=== PATIENT | male | born 1980 | race Caucasian/White ===

== ENCOUNTER → 2017-05-19 | Outpatient (CLI) | payer OTHER ==
[~2017-05-19] MED LIST: ACET-1748 PO; CEP500 PO; CYC10 PO; IBU200 PO; INDO-1 PO; LOR7.5/325 PO; LOSA50TA73 PO; NAP250 PO
[2017-05-19 09:25] LABS: PLATELET COUNT, AUTOMATED 171 K/uL (150-450)
== END ==
LOC: LAB 08:52
PROVIDERS: ATTEND Nurse Practitioner Family
DX: N18.9 Chronic kidney disease, unspecified (principal); Z79.899 Other long term (current) drug therapy; Z94.0 Kidney transplant status; R82.99 Other abnormal findings in urine; E87.8 Other disorders of electrolyte and fluid balance, not elsewhere classified; E83.30 Disorder of phosphorus metabolism, unspecified; E83.40 Disorders of magnesium metabolism, unspecified; R74.8 Abnormal levels of other serum enzymes; Z94.83 Pancreas transplant status
CPT/HCPCS: 36415; 80197; 81001; 82040; 82247; 82310; 82374; 82435; 82565; 82947; 83735; 84075; 84100; 84132; 84155; 84295; 84450; 84460; 84520; 85025

== ENCOUNTER → 2017-06-04 | Outpatient (CLI) | payer OTHER | LOC: LAB 08:58 | PROVIDERS: ATTEND Nurse Practitioner Family | DX: R82.99 Other abnormal findings in urine (principal); R19.7 Diarrhea, unspecified; N18.9 Chronic kidney disease, unspecified; Z94.0 Kidney transplant status | CPT/HCPCS: 82570; 84156; 87799; 99001 ==

== ENCOUNTER → 2017-06-04 | Outpatient (CLI) | payer OTHER ==
[2017-06-04 09:27] LABS: PLATELET COUNT, AUTOMATED 156 K/uL (150-450)
== END ==
LOC: LAB 08:55
PROVIDERS: ATTEND Nurse Practitioner Family
DX: N18.9 Chronic kidney disease, unspecified (principal); Z79.899 Other long term (current) drug therapy; Z94.0 Kidney transplant status; R82.99 Other abnormal findings in urine; E87.8 Other disorders of electrolyte and fluid balance, not elsewhere classified; E83.30 Disorder of phosphorus metabolism, unspecified; E83.40 Disorders of magnesium metabolism, unspecified; R74.8 Abnormal levels of other serum enzymes
CPT/HCPCS: 36415; 80197; 81001; 82040; 82247; 82310; 82374; 82435; 82565; 82947; 83735; 84075; 84100; 84132; 84155; 84295; 84450; 84460; 84520; 85025; 87497

== ENCOUNTER → 2017-06-17 | Outpatient (CLI) | payer OTHER | LOC: LAB 17:56 | PROVIDERS: ATTEND Nurse Practitioner Family | DX: N18.9 Chronic kidney disease, unspecified (principal); Z79.899 Other long term (current) drug therapy; Z94.0 Kidney transplant status; R82.99 Other abnormal findings in urine; E87.8 Other disorders of electrolyte and fluid balance, not elsewhere classified; E83.30 Disorder of phosphorus metabolism, unspecified; E83.40 Disorders of magnesium metabolism, unspecified | CPT/HCPCS: 36415; 82040; 82247; 82310; 82374; 82435; 82565; 82947; 84075; 84132; 84155; 84295; 84450; 84460; 84520 ==

== ENCOUNTER → 2017-06-19 | Outpatient (CLI) | payer OTHER | LOC: LAB 16:14 | PROVIDERS: ATTEND Nurse Practitioner Family | DX: R19.7 Diarrhea, unspecified (principal) | CPT/HCPCS: 82570; 84156 ==

== ENCOUNTER → 2017-06-24 | Outpatient (CLI) | payer OTHER | LOC: LAB 17:03 | DX: Z51.81 Encounter for therapeutic drug level monitoring (principal); N18.9 Chronic kidney disease, unspecified; D50.0 Iron deficiency anemia secondary to blood loss (chronic) ==

== ENCOUNTER → 2017-06-24 | Outpatient (CLI) | payer OTHER ==
[2017-06-24 17:51] LABS: PLATELET COUNT, AUTOMATED 173 K/uL (150-450)
== END ==
LOC: LAB 17:10
PROVIDERS: ATTEND Nurse Practitioner Family
DX: Z79.899 Other long term (current) drug therapy (principal); N18.4 Chronic kidney disease, stage 4 (severe); Z94.0 Kidney transplant status; R82.99 Other abnormal findings in urine; E87.8 Other disorders of electrolyte and fluid balance, not elsewhere classified; E83.30 Disorder of phosphorus metabolism, unspecified
CPT/HCPCS: 36415; 80197; 81001; 82040; 82247; 82274; 82310; 82374; 82435; 82565; 82947; 83630; 83735; 84075; 84100; 84132; 84155; 84295; 84450; 84460; 84520; 85025; 87045; 87177; 87324; 87328; 87425; 87449

== ENCOUNTER → 2017-07-11 | Outpatient (CLI) | payer OTHER ==
[2017-07-11 15:12] LABS: PLATELET COUNT, AUTOMATED 163 K/uL (150-450)
== END ==
LOC: LAB 14:42
PROVIDERS: ATTEND Nurse Practitioner Family
DX: N18.9 Chronic kidney disease, unspecified (principal); Z79.899 Other long term (current) drug therapy; Z94.0 Kidney transplant status; R82.99 Other abnormal findings in urine; E87.8 Other disorders of electrolyte and fluid balance, not elsewhere classified; E83.30 Disorder of phosphorus metabolism, unspecified; E83.40 Disorders of magnesium metabolism, unspecified
CPT/HCPCS: 36415; 81001; 82040; 82247; 82310; 82374; 82435; 82565; 82947; 84075; 84132; 84155; 84295; 84450; 84460; 84520; 85025

== ENCOUNTER → 2017-07-14 | Outpatient (CLI) | payer OTHER ==
[2017-07-14 09:32] LABS: PLATELET COUNT, AUTOMATED 159 K/uL (150-450)
== END ==
LOC: LAB 09:08
PROVIDERS: ATTEND Nurse Practitioner Family
DX: N18.9 Chronic kidney disease, unspecified (principal); Z79.899 Other long term (current) drug therapy; Z94.0 Kidney transplant status; R82.99 Other abnormal findings in urine; E87.8 Other disorders of electrolyte and fluid balance, not elsewhere classified; E83.30 Disorder of phosphorus metabolism, unspecified; E83.40 Disorders of magnesium metabolism, unspecified
CPT/HCPCS: 36415; 80197; 82040; 82247; 82310; 82374; 82435; 82565; 82947; 84075; 84132; 84155; 84295; 84450; 84460; 84520; 85025; 87497

== ENCOUNTER → 2017-07-30 | Outpatient (CLI) | payer OTHER ==
[2017-07-30 20:06] LABS: PLATELET COUNT, AUTOMATED 180 K/uL (150-450)
== END ==
LOC: LAB 19:45
PROVIDERS: ATTEND Nurse Practitioner Family
DX: N18.9 Chronic kidney disease, unspecified (principal); Z79.899 Other long term (current) drug therapy; Z94.0 Kidney transplant status; R82.99 Other abnormal findings in urine; E87.8 Other disorders of electrolyte and fluid balance, not elsewhere classified; E83.30 Disorder of phosphorus metabolism, unspecified
CPT/HCPCS: 36415; 81001; 82040; 82247; 82310; 82374; 82435; 82565; 82947; 84075; 84132; 84155; 84295; 84450; 84460; 84520; 85025

== ENCOUNTER → 2017-08-11 | Outpatient (CLI) | payer OTHER ==
[2017-08-11 09:42] LABS: PLATELET COUNT, AUTOMATED 170 K/uL (150-450)
== END ==
LOC: LAB 09:05
PROVIDERS: ATTEND Nurse Practitioner Family
DX: N18.9 Chronic kidney disease, unspecified (principal); Z79.899 Other long term (current) drug therapy; Z94.0 Kidney transplant status; R82.99 Other abnormal findings in urine; E87.8 Other disorders of electrolyte and fluid balance, not elsewhere classified; E83.30 Disorder of phosphorus metabolism, unspecified; E83.40 Disorders of magnesium metabolism, unspecified
CPT/HCPCS: 36415; 80197; 82040; 82247; 82310; 82374; 82435; 82565; 82947; 84075; 84132; 84155; 84295; 84450; 84460; 84520; 85025

== ENCOUNTER → 2017-09-17 | Outpatient (CLI) | payer OTHER | LOC: LAB 08:34 | PROVIDERS: ATTEND Nurse Practitioner Family | DX: E87.8 Other disorders of electrolyte and fluid balance, not elsewhere classified (principal); Z94.0 Kidney transplant status; N18.9 Chronic kidney disease, unspecified; Z79.899 Other long term (current) drug therapy; E83.30 Disorder of phosphorus metabolism, unspecified; E83.40 Disorders of magnesium metabolism, unspecified | CPT/HCPCS: 36415; 80197; 81001; 82040; 82247; 82310; 82374; 82435; 82565; 82947; 84075; 84132; 84155; 84295; 84450; 84460; 84520; 87497 ==

== ENCOUNTER → 2017-09-30 | Outpatient (CLI) | payer OTHER ==
[2017-09-30 09:58] LABS: PLATELET COUNT, AUTOMATED 177 K/uL (150-450)
== END ==
LOC: LAB 09:08
PROVIDERS: ATTEND Nurse Practitioner Family
DX: E87.8 Other disorders of electrolyte and fluid balance, not elsewhere classified (principal); E83.30 Disorder of phosphorus metabolism, unspecified; Z94.0 Kidney transplant status; Z79.899 Other long term (current) drug therapy; N18.9 Chronic kidney disease, unspecified
CPT/HCPCS: 81001; 82040; 82247; 82310; 82374; 82435; 82565; 82947; 83735; 84075; 84100; 84132; 84155; 84295; 84450; 84460; 84520; 85025

== ENCOUNTER → 2017-09-30 | Outpatient (CLI) | payer OTHER | LOC: LAB 09:11 | DX: R82.99 Other abnormal findings in urine (principal); E11.9 Type 2 diabetes mellitus without complications; E78.00 Pure hypercholesterolemia, unspecified; N18.9 Chronic kidney disease, unspecified; Z94.0 Kidney transplant status; E55.9 Vitamin D deficiency, unspecified | CPT/HCPCS: 36415; 82465; 83718; 84478 ==

== ENCOUNTER → 2017-10-04 | Outpatient (CLI) | payer OTHER ==
--- NOTE | 2017-10-04 11:45 | RADIOLOGY IMAGING REPORT ---
FACILITY: [facility] [place] PATIENT NAME: Tahir Menjivar : 1980 MR: [id number] V: [id number] EXAM DATE: ORDERING PHYSICIAN: CAROLYN DENNIS TECHNOLOGIST: Location: [facility] - [place], [place] Patient: Tahir Menjivar : 1980 Visit/Account:[id number] Date of Sevice: 10/04/2017 EXAMINATION: Abdominal ultrasound complete HISTORY: Elevated bilirubin history of gallbladder polyps, right upper quadrant pain COMPARISON: CT abdomen pelvis August 19, 2011 FINDINGS: Gallbladder: Small nonshadowing nonmobile echogenic foci are seen at the gallbladder neck and along t he anterior wall. Gallbladder wall measures 1.7 mm in thickness. There is a negative Feliciano sign. Liver: Negative. Common duct: Normal measuring 4.9 mm. Pancreas: Negative. Spleen: Normal in size and echogenicity measuring 10.1 cm in length. Kidneys: The tetlin kidneys are atrophic and echogenic, the right measures 4.9 cm in length, and the left 5.9 cm. No hydronephrosis. There is a transplanted kidney in the right pelvis measuring 10.1 x 5 x 5.9 cm there is minimal pelvocaliectasis of this kidney Upper abdominal aorta and IVC: Negative. Ascites: None. IMPRESSION: Small gallbladder polyps are noted Small atrophic tetlin kidneys Transplanted right kidney in the right-sided the pelvis with minimal pelvocaliectasis Report Dictated By: Julia Lazcano MD at 10/04/2017 11:36 AM Report E-Signed By: Julia Lazcano MD at 10/04/2017 11:40 AM WSN:[email or web address]
== END ==
LOC: US 03:19
PROVIDERS: ATTEND Family Medicine
DX: K82.4 Cholesterolosis of gallbladder (principal); N26.1 Atrophy of kidney (terminal); Z94.0 Kidney transplant status
CPT/HCPCS: 76700

== ENCOUNTER → 2017-10-05 | Outpatient (CLI) | payer OTHER ==
[2017-10-05 09:20] LABS: PLATELET COUNT, AUTOMATED 170 K/uL (150-450)
== END ==
LOC: LAB 08:56
PROVIDERS: ATTEND Nurse Practitioner Family
DX: Z94.0 Kidney transplant status (principal); Z79.899 Other long term (current) drug therapy; N18.9 Chronic kidney disease, unspecified; E87.8 Other disorders of electrolyte and fluid balance, not elsewhere classified; E83.30 Disorder of phosphorus metabolism, unspecified
CPT/HCPCS: 36415; 80197; 81001; 82040; 82247; 82310; 82374; 82435; 82565; 82947; 83735; 84075; 84100; 84132; 84155; 84295; 84450; 84460; 84520; 85025; 87497

== ENCOUNTER 2017-10-24 19:16 | Emergency (ER) | payer OTHER ==
--- NOTE | 2017-10-24 19:27 | ER Report ---
History and Physical Time Seen By MD: 19:27 Hx. of Stated Complaint: Pt reporting abdominal pain for a week. Upper left quadrant to be specific. Pt reports no nvd or fevers. Pt states his "appenix is fine" meaning he still has it but reports no lower right quadrant pain. Pt is a kidney transplant patient and states antiregection medication has been causing "gullbladder polyps". HPI/ROS CHIEF COMPLAINT: Abdominal pain HISTORY OF PRESENT ILLNESS: Patient is a 37-year-old male who presents to the emergency department for evaluation of epigastric abdominal pain that began today. He currently states that the pain is 7 out of 10 in intensity and without radiation. He states no nausea or vomiting. He denies any fevers or chills. Patient has a history for acute kidney failure and received a transplant at [place] in 2017. Prior to that he had been admitted [place] [facility] [place] and was found to have decreased renal function and pyelonephritis for which she was treated for at that time. He states that he takes tacrolimus, mycophenolate, and prednisone as antirejection medications. He denies ever having problems with rejection. Patient's kidney is abdominal inserted on the right lower quadrant. REVIEW OF SYSTEMS: Constitutional: No fever, no chills. Eyes: No discharge. ENT: No sore throat. Cardiovascular: No chest pain, no palpitations. Respiratory: No cough, no shortness of breath. Gastrointestinal: Epigastric abdominal pain, no nausea, no vomiting, no diarrhea Genitourinary: No hematuria. No dysuria, no oliguria. Musculoskeletal: No back pain. Skin: No rashes. Neurological: No headache. Allergies: Coded Allergies: No Known Drug Allergies (Verified , 05/14/11) Home Meds Reported Medications Pantoprazole Sodium (PANTOPRAZOLE SODIUM) 40 Mg Tablet.dr, 40 MG PO QDAY Y for prn, TAB.SR 10/24/17 Calcium Carbonate (Calcium) 500 Mg Tab.chew, 600 MG BID 10/24/17 [magnesium] No Conflict Check, 400 BID 10/24/17 Prednisone (Prednisone) 5 Mg Tablet, 5 MG QDAY 10/24/17 Mycophenolate Sodium (Mycophenolic Acid) 360 Mg Tablet.dr, 720 BID 10/24/17 Tacrolimus (TACROLIMUS) 1 Mg Capsule, 2 MG PO BID, CAPSULE 10/24/17 Acetaminophen (Acetaminophen) 325 Mg Tablet, 650 MG PO Q6H Y DO NOT TAKE IF USING LORTAB. 08/22/11 Discontinued Reported Medications Cephalexin Monohydrate (Keflex) 500 Mg Cap, 500 MG PO QID, #44 Take 1 tablet 4 times per day for 11 days. 08/22/11 Losartan Potassium (Losartan Potassium) 50 Mg Tablet, 50 MG PO QDAY 08/19/11 Acetaminophen/Hydrocodone (Lortab 7.5/325 Mg) 7.5 Mg/325 Mg Tab, 1 TAB PO Q6H Y , #15 0 Refills DO NOT TAKE IF USING LORTAB. 05/14/11 Past Medical/Surgical History Past medical history for renal insufficiency and admission in 2012 for pyelonephritis. History of kidney transplant currently on antirejection medication. 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 Head: Normocephalic and atraumatic. Eyes: Conjunctival clear, Pupils are equal and reactive to light. Sclera are clear and anicteric. Ears:External canals are clear. Tympanic membranes are clear with normal landmarks and light reflex. Nares: No rhinorrhea or bleeding. Turbinates are pink and moist. Oropharyngeal: Mucous membranes are moist. Neck: Supple, no adenopathy. Cardiovascular: Heart is regular rate and rhythm without audible murmurs, rubs or gallops. Pulmonary: Lungs are clear to auscultation bilaterally. There are no wheezes, rales, or rhonchi. Chest rise is symmetrical Abdomen: Soft, mild epigastric tenderness, no guarding or peritoneal signs. Patient has surgical scar to the right lower quadrant appears chronic and well- healed. Extremities: No gross deformities, No peripheral cyanosis. Able to move all 4 extremities. Neuro: Alert and oriented X3, Skin: No rashes, skin is warm dry and well perfused. Medical Decision Making Data Points Result Diagram: 10/24/17194110/24/171941 Laboratory Hematology Test 10/24/17 19:21 10/24/17 19:42 Urine Color Colorless Urine Clarity Clear Urine pH 6.0 pH (4.8-9.5) Urine Specific Spiro 1.002 Urine Protein Negative mg/dL (NEGATIVE) Urine Glucose (UA) Negative mg/dL (NEGATIVE) Urine Ketones Negative mg/dL (NEGATIVE) Urine Blood Negative (NEGATIVE) Urine Nitrite Negative (NEGATIVE) Urine Bilirubin Negative (NEGATIVE) Urine Urobilinogen Negative mg/dL (0.2-1.9) Urine Leukocyte Esterase Negative (NEGATIVE) Urine RBC None /HPF (0-2/HPF) Urine WBC None /HPF (0-5/HPF) Urine Squamous Epithelial Cells None /LPF (</=FEW) Urine Bacteria Negative /HPF (NONE-FEW) Urine Mucus None /HPF (NONE-FEW) Red Blood Count 5.33 M/uL (4.00-5.60) Mean Corpuscular Volume 83.1 fL (80.0-96.0) Mean Corpuscular Hemoglobin 28.2 pg (26.0-33.0) Mean Corpuscular Hemoglobin Concent 33.9 g/dL (32.0-36.0) Red Cell Distribution Width 14.7 % (11.5-14.5) Mean Platelet Volume 8.7 fL (7.2-11.1) Neutrophils (%) (Auto) 63.7 % (39.4-72.5) Lymphocytes (%) (Auto) 28.7 % (17.6-49.6) Monocytes (%) (Auto) 7.0 % (4.1-12.4) Eosinophils (%) (Auto) 0.1 % (0.4-6.7) Basophils (%) (Auto) 0.5 % (0.3-1.4) Nucleated RBC Relative Count (auto) 0.1 /100WBC Neutrophils # (Auto) 5.7 K/uL (2.0-7.4) Lymphocytes # (Auto) 2.6 K/uL (1.3-3.6) Monocytes # (Auto) 0.6 K/uL (0.3-1.0) Eosinophils # (Auto) 0.0 K/uL (0.0-0.5) Basophils # (Auto) 0.0 K/uL (0.0-0.1) Nucleated RBC Absolute Count (auto) 0.01 K/uL Sodium Level 138 mmol/L (137-145) Potassium Level 3.7 mmol/L (3.5-5.0) Chloride Level 103 mmol/L (98-107) Carbon Dioxide Level 23 mmol/L (22-30) Blood Urea Nitrogen 21 mg/dl (9-21) Creatinine 1.30 mg/dl (0.66-1.25) Glomerular Filtration Rate Calc > 60.0 Random Glucose 82 mg/dl (75-110) Calcium Level 9.7 mg/dl (8.4-10.2) Total Bilirubin 1.7 mg/dl (0.2-1.3) Aspartate Amino Transf (AST/SGOT) 17 U/L (0-35) Alanine Aminotransferase (ALT/SGPT) 25 U/L (0-56) Alkaline Phosphatase 56 U/L (0-126) Total Protein 7.2 gm/dl (6.3-8.2) Albumin 4.3 g/dl (3.5-5.0) Lipase 203 U/L (23-300) Chemistry Test 10/24/17 19:21 10/24/17 19:42 Urine Color Colorless Urine Clarity Clear Urine pH 6.0 pH (4.8-9.5) Urine Specific Spiro 1.002 Urine Protein Negative mg/dL (NEGATIVE) Urine Glucose (UA) Negative mg/dL (NEGATIVE) Urine Ketones Negative mg/dL (NEGATIVE) Urine Blood Negative (NEGATIVE) Urine Nitrite Negative (NEGATIVE) Urine Bilirubin Negative (NEGATIVE) Urine Urobilinogen Negative mg/dL (0.2-1.9) Urine Leukocyte Esterase Negative (NEGATIVE) Urine RBC None /HPF (0-2/HPF) Urine WBC None /HPF (0-5/HPF) Urine Squamous Epithelial Cells None /LPF (</=FEW) Urine Bacteria Negative /HPF (NONE-FEW) Urine Mucus None /HPF (NONE-FEW) White Blood Count 9.0 k/uL (4.5-11.0) Red Blood Count 5.33 M/uL (4.00-5.60) Hemoglobin 15.0 g/dL (14.0-18.0) Hematocrit 44.3 % (42.0-52.0) Mean Corpuscular Volume 83.1 fL (80.0-96.0) Mean Corpuscular Hemoglobin 28.2 pg (26.0-33.0) Mean Corpuscular Hemoglobin Concent 33.9 g/dL (32.0-36.0) Red Cell Distribution Width 14.7 % (11.5-14.5) Platelet Count 165 K/uL (150-450) Mean Platelet Volume 8.7 fL (7.2-11.1) Neutrophils (%) (Auto) 63.7 % (39.4-72.5) Lymphocytes (%) (Auto) 28.7 % (17.6-49.6) Monocytes (%) (Auto) 7.0 % (4.1-12.4) Eosinophils (%) (Auto) 0.1 % (0.4-6.7) Basophils (%) (Auto) 0.5 % (0.3-1.4) Nucleated RBC Relative Count (auto) 0.1 /100WBC Neutrophils # (Auto) 5.7 K/uL (2.0-7.4) Lymphocytes # (Auto) 2.6 K/uL (1.3-3.6) Monocytes # (Auto) 0.6 K/uL (0.3-1.0) Eosinophils # (Auto) 0.0 K/uL (0.0-0.5) Basophils # (Auto) 0.0 K/uL (0.0-0.1) Nucleated RBC Absolute Count (auto) 0.01 K/uL Glomerular Filtration Rate Calc > 60.0 Calcium Level 9.7 mg/dl (8.4-10.2) Total Bilirubin 1.7 mg/dl (0.2-1.3) Aspartate Amino Transf (AST/SGOT) 17 U/L (0-35) Alanine Aminotransferase (ALT/SGPT) 25 U/L (0-56) Alkaline Phosphatase 56 U/L (0-126) Total Protein 7.2 gm/dl (6.3-8.2) Albumin 4.3 g/dl (3.5-5.0) Lipase 203 U/L (23-300) Urinalysis Test 10/24/17 19:21 Urine Color Colorless Urine Clarity Clear Urine pH 6.0 pH (4.8-9.5) Urine Specific Spiro 1.002 Urine Protein Negative mg/dL (NEGATIVE) Urine Glucose (UA) Negative mg/dL (NEGATIVE) Urine Ketones Negative mg/dL (NEGATIVE) Urine Blood Negative (NEGATIVE) Urine Nitrite Negative (NEGATIVE) Urine Bilirubin Negative (NEGATIVE) Urine Urobilinogen Negative mg/dL (0.2-1.9) Urine Leukocyte Esterase Negative (NEGATIVE) Urine RBC None /HPF (0-2/HPF) Urine WBC None /HPF (0-5/HPF) Urine Squamous Epithelial Cells None /LPF (</=FEW) Urine Bacteria Negative /HPF (NONE-FEW) Urine Mucus None /HPF (NONE-FEW) ED Course/Re-evaluation Clinical Indication for ER IV: IV Access ED Course 10/24/2017 7:53:39 pm plan at this time will be to obtain CBC CMP and lipase urinalysis. Patient was offered pain medication but states he does not wish any at this time. Disposition pending workup. 10/24/2017 8:30:53 pm patient with normal GFR labs essentially all normal urinalysis is normal as well. Exam remains unchanged. Because patient has minimal symptoms do not feel any imaging studies at this time are warranted. Patient was counseled that if his symptoms seem to worsen or he develops fever at any time or has decreased urinary output should return immediately to the emergency department for reevaluation. Patient had no questions or concerns at time of disposition. Decision to Disposition Date: Oct 24, 2017 Decision to Disposition Time: 20:31 Depart Departure Latest Vital Signs Vital Signs Date Time Temp Pulse Resp B/P (MAP) Pulse Ox O2 Delivery O2 Flow Rate FiO2 10/24/17 20:31 76 96 10/24/17 20:00 135/97 (110) 10/24/17 19:21 98.2 16 Room Air Impression: Primary Impression: Epigastric abdominal pain Condition: Improved Disposition: HOME OR SELF-CARE Departure Forms: ER Transition Record, Medications Reconciliation, Patient Portal Information Patient Instructions: Epigastric Pain (ED) Additional Instructions: Continue all your outpatient medications as directed. If you develop fever at any time or if you have worsening abdominal pain or decreased urine output or blood in the urine you should return to the emergency department immediately. Otherwise follow-up routinely with your primary care provider LYN HOWARD MD Oct 24, 2017 19:27
[2017-10-24] MEDS ORDERED: magnesium (19:34)
[2017-10-24] MEDS ORDERED: PANT40TA65 PO (19:34)
[2017-10-24] MEDS ORDERED: TACR1CAP13 PO (19:34)
[2017-10-24] MEDS ORDERED: CALC-1046 (19:34)
[2017-10-24] MEDS ORDERED: PRED-317 (19:34)
[2017-10-24] MEDS ORDERED: MYCO360T (19:34)
[2017-10-24 19:59] LABS: PLATELET COUNT, AUTOMATED 165 K/uL (150-450)
[2017-10-24 20:00] VITALS: BP 135/97
== END 2017-10-24 20:36 | disposition home or self-care (01) ==
LOC: ER 19:32
DX: R10.13 Epigastric pain (principal); Z94.0 Kidney transplant status
CPT/HCPCS: 81001; 82040; 82247; 82310; 82374; 82435; 82565; 82947; 83690; 84075; 84132; 84155; 84295; 84450; 84460; 84520; 85025; 99282

== ENCOUNTER → 2017-10-28 | Outpatient (CLI) | payer OTHER ==
[~2017-10-28] MED LIST changes: +CALC-1046; +MYCO360T; +PANT40TA65 PO; +PRED-317; +TACR1CAP13 PO; +magnesium
[2017-10-28 09:19] LABS: PLATELET COUNT, AUTOMATED 183 K/uL (150-450)
== END ==
LOC: LAB 08:42
PROVIDERS: ATTEND Nurse Practitioner Family
DX: N18.9 Chronic kidney disease, unspecified (principal); Z79.899 Other long term (current) drug therapy; Z94.0 Kidney transplant status; R82.99 Other abnormal findings in urine; E87.8 Other disorders of electrolyte and fluid balance, not elsewhere classified; E83.30 Disorder of phosphorus metabolism, unspecified; E83.40 Disorders of magnesium metabolism, unspecified
CPT/HCPCS: 36415; 80197; 81001; 82040; 82247; 82310; 82374; 82435; 82565; 82947; 83735; 84075; 84100; 84132; 84155; 84295; 84450; 84460; 84520; 85025; 87497

== ENCOUNTER → 2017-11-04 | Outpatient (REF) | payer OTHER | LOC: ZZSENDIN 09:02 | PROVIDERS: ATTEND Internal Medicine Nephrology | DX: R80.1 Persistent proteinuria, unspecified (principal); Z94.0 Kidney transplant status; E87.2 Acidosis; M10.9 Gout, unspecified; D89.9 Disorder involving the immune mechanism, unspecified; E13.9 Other specified diabetes mellitus without complications | CPT/HCPCS: 82570; 84156 ==

== ENCOUNTER → 2017-11-17 | Outpatient (CLI) | payer OTHER ==
[2017-11-17 09:30] LABS: PLATELET COUNT, AUTOMATED 165 K/uL (150-450)
== END ==
LOC: LAB 08:58
PROVIDERS: ATTEND Nurse Practitioner Family
DX: N18.9 Chronic kidney disease, unspecified (principal); Z79.899 Other long term (current) drug therapy; Z94.0 Kidney transplant status; R82.99 Other abnormal findings in urine; E87.8 Other disorders of electrolyte and fluid balance, not elsewhere classified; E83.30 Disorder of phosphorus metabolism, unspecified; E83.40 Disorders of magnesium metabolism, unspecified
CPT/HCPCS: 36415; 80197; 81001; 82040; 82247; 82310; 82374; 82435; 82565; 82947; 83735; 84075; 84100; 84132; 84155; 84295; 84450; 84460; 84520; 85025; 87497

== ENCOUNTER → 2017-12-10 | Outpatient (CLI) | payer OTHER | LOC: LAB 08:51 | PROVIDERS: ATTEND Internal Medicine Nephrology | DX: R80.1 Persistent proteinuria, unspecified (principal); Z94.0 Kidney transplant status; E87.2 Acidosis; M10.9 Gout, unspecified; D89.9 Disorder involving the immune mechanism, unspecified; E13.9 Other specified diabetes mellitus without complications | CPT/HCPCS: 82570; 84156 ==

== ENCOUNTER → 2017-12-10 | Outpatient (CLI) | payer OTHER ==
[2017-12-10 09:24] LABS: PLATELET COUNT, AUTOMATED 171 K/uL (150-450)
== END ==
LOC: LAB 08:49
PROVIDERS: ATTEND Nurse Practitioner Family
DX: N18.9 Chronic kidney disease, unspecified (principal); Z79.899 Other long term (current) drug therapy; Z94.0 Kidney transplant status; R82.99 Other abnormal findings in urine; E87.8 Other disorders of electrolyte and fluid balance, not elsewhere classified; E83.30 Disorder of phosphorus metabolism, unspecified; E83.40 Disorders of magnesium metabolism, unspecified
CPT/HCPCS: 36415; 80197; 81001; 82040; 82247; 82310; 82374; 82435; 82565; 82947; 83735; 84075; 84100; 84132; 84155; 84295; 84450; 84460; 84520; 85025; 87497

== ENCOUNTER → 2017-12-29 | Outpatient (CLI) | payer OTHER ==
[2017-12-29 11:55] LABS: PLATELET COUNT, AUTOMATED 183 K/uL (150-450)
== END ==
LOC: LAB 11:20
PROVIDERS: ATTEND Nurse Practitioner Family
DX: N18.9 Chronic kidney disease, unspecified (principal); Z79.899 Other long term (current) drug therapy; Z94.0 Kidney transplant status
CPT/HCPCS: 36415; 82040; 82247; 82310; 82374; 82435; 82565; 82947; 84075; 84132; 84155; 84295; 84450; 84460; 84520; 85025

== ENCOUNTER → 2017-12-29 | Outpatient (CLI) | payer OTHER | LOC: LAB 11:23 | PROVIDERS: ATTEND Internal Medicine Nephrology | DX: E13.9 Other specified diabetes mellitus without complications (principal); D89.9 Disorder involving the immune mechanism, unspecified; E87.2 Acidosis; Z94.0 Kidney transplant status; R80.1 Persistent proteinuria, unspecified | CPT/HCPCS: 84156 ==

== ENCOUNTER 2018-02-02 09:30 | Emergency (ER) | payer OTHER ==
[~2018-02-02 09:30] MED LIST changes: -CHLO473M14 PO; -LOR5/325 PO; -PENI-24 PO
[2018-02-02 09:45] VITALS: BP 114/71
[2018-02-02] MEDS ORDERED: LOR5/325 PO (10:05)
[2018-02-02] MEDS ORDERED: PENI-24 PO (10:05)
--- NOTE | 2018-02-02 10:06 | ER Report ---
History and Physical Time Seen By MD: 09:50 Hx. 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 States he's had pain to the left maxillary molars for the last 2 days. Denies any fevers or chills. States that he did try to see a dentist and [place] but because of his renal problems they would not see him. Allergies: Coded Allergies: No Known Drug Allergies (Verified , 02/02/18) Home Meds Active Scripts Chlorhexidine Gluconate (Peridex) 0.12 % Mouthwash, 10 ML PO Q6H, #280 ML 0 Refills Swish and spit 10ml every hours for 7 days Prov:LYN HOWARD MD 02/02/18 Hydrocodone Bit/Acetaminophen (HYDROCODON-ACETAMINOPHEN 5-325) 1 Each Tablet, 1 EACH PO Q4-6H PRN for PAIN, #12 TAB 0 Refills TAKE ONE TABLET BY MOUTH EVERY 4-6 HOURS NEEDED FOR PAIN Prov:LYN HOWARD MD 02/02/18 Penicillin V Potassium 500 Mg Tab (PENICILLIN V POTASSIUM 500 MG TAB) 500 Mg Tablet, 500 MG PO QID, #28 TAB 0 Refills Prov:LYN HOWARD MD 02/02/18 Reported Medications Pantoprazole Sodium (PANTOPRAZOLE SODIUM) 40 Mg Tablet.dr, 40 MG PO QDAY PRN for prn, TAB.SR 10/24/17 Calcium Carbonate (Calcium) 500 Mg Tab.chew, 600 MG BID 10/24/17 [magnesium] No Conflict Check, 400 BID 10/24/17 Prednisone (Prednisone) 5 Mg Tablet, 5 MG QDAY 10/24/17 Mycophenolate Sodium (Mycophenolic Acid) 360 Mg Tablet.dr, 720 BID 10/24/17 Tacrolimus (TACROLIMUS) 1 Mg Capsule, 2 MG PO BID, CAPSULE 10/24/17 Acetaminophen (Acetaminophen) 325 Mg Tablet, 650 MG PO Q6H PRN DO NOT TAKE IF USING LORTAB. 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 ENT, Mouth: Ears: Tympanic membranes are normal. Nose: No bleeding. Mouth: Mucous membranes are moist. Throat: No erythema or exudates there is no tonsillar hypertrophy and uvula is midline. Teeth: Examination of the mouth reveals some gingival erythema and swelling to the left maxillary molar area without fluctuant abscess. Medical Decision Making ED Course/Re-evaluation ED Course 02/02/2018 10:03:56 am when at this time will be to treat with oral penicillin as well as pain medication and referral to a dentist. Decision to Disposition Date: Feb 02, 2018 Decision to Disposition Time: 10:06 Depart Departure Latest Vital Signs Vital Signs Date Time Temp Pulse Resp B/P (MAP) Pulse Ox O2 Delivery O2 Flow Rate FiO2 02/02/18 09:45 97.9 96 16 114/71 97 Room Air Impression: Primary Impression: Gingivitis Additional Impression: Pain, dental Condition: Improved Disposition: HOME OR SELF-CARE New Scripts Chlorhexidine Gluconate (Peridex) 0.12 % Mouthwash 10 ML PO Q6H, #280 ML 0 Refills Swish and spit 10ml every hours for 7 days Prov: LYN HOWARD MD 02/02/18 Hydrocodone Bit/Acetaminophen (HYDROCODON-ACETAMINOPHEN 5-325) 1 Each Tablet 1 EACH PO Q4-6H PRN for PAIN, #12 TAB 0 Refills TAKE ONE TABLET BY MOUTH EVERY 4-6 HOURS NEEDED FOR PAIN Prov: LYN HOWARD MD 02/02/18 Penicillin V Potassium 500 Mg Tab (PENICILLIN V POTASSIUM 500 MG TAB) 500 Mg Tablet 500 MG PO QID, #28 TAB 0 Refills Prov: LYN HOWARD MD 02/02/18 Patient Instructions: Toothache (ED) Additional Instructions: Take your antibiotics as directed until completed Make an appointment with a dentist so they can evaluate what I suspect are impacted wisdom teeth Problem Qualifiers LYN HOWARD MD Feb 02, 2018 10:06
[2018-02-02] MEDS ORDERED: CHLO473M14 PO (10:13)
== END 2018-02-02 10:14 | disposition home or self-care (01) ==
LOC: ER 10:06
DX: K05.10 Chronic gingivitis, plaque induced (principal)
CPT/HCPCS: 99281

== ENCOUNTER → 2018-02-02 | Outpatient (CLI) | payer OTHER ==
[~2018-02-02] MED LIST changes: +CHLO473M14 PO; +LOR5/325 PO; +PENI-24 PO
[2018-02-02 09:48] LABS: PLATELET COUNT, AUTOMATED 175 K/uL (150-450)
== END ==
LOC: LAB 08:57
PROVIDERS: ATTEND Nurse Practitioner Family
DX: E87.8 Other disorders of electrolyte and fluid balance, not elsewhere classified (principal); N18.9 Chronic kidney disease, unspecified; Z79.899 Other long term (current) drug therapy; Z94.0 Kidney transplant status; E83.30 Disorder of phosphorus metabolism, unspecified; E83.40 Disorders of magnesium metabolism, unspecified
CPT/HCPCS: 36415; 80197; 81001; 82040; 82247; 82310; 82374; 82435; 82565; 82947; 83735; 84075; 84100; 84132; 84155; 84295; 84450; 84460; 84520; 85025; 87497

== ENCOUNTER → 2018-02-23 | Outpatient (CLI) | payer OTHER ==
[~2018-02-23] MED LIST changes: +CHLO473M14 PO; +LOR5/325 PO; +PENI-24 PO
[2018-02-23 18:30] LABS: PLATELET COUNT, AUTOMATED 220 K/uL (150-450)
== END ==
LOC: LAB 18:09
PROVIDERS: ATTEND Nurse Practitioner Family
DX: N18.9 Chronic kidney disease, unspecified (principal); Z79.899 Other long term (current) drug therapy; Z94.0 Kidney transplant status; E87.8 Other disorders of electrolyte and fluid balance, not elsewhere classified
CPT/HCPCS: 36415; 81001; 82040; 82247; 82310; 82374; 82435; 82565; 82947; 84075; 84132; 84155; 84295; 84450; 84460; 84520; 85025

== ENCOUNTER → 2018-03-16 | Outpatient (CLI) | payer OTHER ==
[2018-03-16 09:24] LABS: PLATELET COUNT, AUTOMATED 171 K/uL (150-450)
== END ==
LOC: LAB 08:53
PROVIDERS: ATTEND Nurse Practitioner Family
DX: N18.9 Chronic kidney disease, unspecified (principal); Z79.899 Other long term (current) drug therapy; Z94.0 Kidney transplant status; E87.8 Other disorders of electrolyte and fluid balance, not elsewhere classified; E83.30 Disorder of phosphorus metabolism, unspecified; E83.40 Disorders of magnesium metabolism, unspecified
CPT/HCPCS: 36415; 80197; 81001; 82040; 82247; 82310; 82374; 82435; 82565; 82947; 83735; 84075; 84100; 84132; 84155; 84295; 84450; 84460; 84520; 85025; 87497

== ENCOUNTER 2018-03-21 09:59 | Emergency (ER) | payer OTHER ==
--- NOTE | 2018-03-21 10:29 | ER Report ---
History and Physical Time Seen By MD: 10:27 Hx. of Stated Complaint: PATIENT REPORTS WAKING UP WITH RIGHT POSTERIOR KNEE PAIN. HE DENIES TRAUMA HPI/ROS CHIEF COMPLAINT: Atraumatic right knee pain. HISTORY OF PRESENT ILLNESS: Patient states that he woke up this morning with posterior right knee pain. He denies any history of trauma or injury. Denies twisting the knee. No similar episodes in the past. Denies any redness or swelling. He does report he has a history of gout in the past that has affected his foot. Allergies: Coded Allergies: No Known Drug Allergies (Verified , 02/02/18) Home Meds Active Scripts Hydrocodone Bit/Acetaminophen (HYDROCODON-ACETAMINOPHEN 5-325) 1 Each Tablet, 1 EACH PO Q4-6H PRN for PAIN, #12 TAB 0 Refills TAKE ONE TABLET BY MOUTH EVERY 4-6 HOURS NEEDED FOR PAIN Prov:LYN HOWARD MD 03/21/18 Reported Medications Pantoprazole Sodium (PANTOPRAZOLE SODIUM) 40 Mg Tablet.dr, 40 MG PO QDAY PRN for prn, TAB.SR 10/24/17 Calcium Carbonate (Calcium) 500 Mg Tab.chew, 600 MG BID 10/24/17 [magnesium] No Conflict Check, 400 BID 10/24/17 Prednisone (Prednisone) 5 Mg Tablet, 5 MG QDAY 10/24/17 Mycophenolate Sodium (Mycophenolic Acid) 360 Mg Tablet.dr, 720 BID 10/24/17 Tacrolimus (TACROLIMUS) 1 Mg Capsule, 2 MG PO BID, CAPSULE 10/24/17 Discontinued Reported Medications Acetaminophen (Acetaminophen) 325 Mg Tablet, 650 MG PO Q6H PRN DO NOT TAKE IF USING LORTAB. 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 Right knee: There is no significant swelling. There is no effusion. There is no obvious deformity of the knee. There is moderate tenderness to the posterior aspect of the knee. There does not appear to be any overlying erythema. There is no fluctuance in the popliteal fossa. The joint is stable with no comparable ligamentous laxity to the knee. She has difficulty straightening the leg fully and can only get to about 150 There is no tenderness proximal or distal to the knee. Neurologic exam: The patient has normal sensation distal to the injury. Vascular exam: Normal pulses and capillary refill in the foot [ ] DIFFERENTIAL DIAGNOSIS: After history and physical exam differential diagnosis was considered for knee injury including sprain, fracture, meniscus injury and soft tissue injury. Medical Decision Making EKG/Imaging Imaging FACILITY: [facility] PATIENT NAME: Tahir Menjivar : 1980 MR: [id number] V: [id number] EXAM DATE: ORDERING PHYSICIAN: LYN HOWARD TECHNOLOGIST: Location: [facility] Patient: Tahir Menjivar : 1980 Visit/Account:[id number] Date of Sevice: 03/21/2018 EXAMINATION: Right knee, 4 views 03/21/2018 10:29 AM HISTORY: Pain. Unable to straighten leg. COMPARISON: None FINDINGS: Visualized bony structures are intact and anatomically aligned without fracture or other acute osseous abnormality evident. Probable small suprapatellar effusion is present. IMPRESSION: Probable small suprapatellar effusion. No acute bony finding. Report Dictated By: Alexei Carlos MD at 03/21/2018 10:54 AM Report E-Signed By: Alexei Carlos MD at 03/21/2018 10:56 AM WSN:[email or web address] ED Course/Re-evaluation ED Course 03/21/2018 10:29:15 am at this time will be x-ray of the right knee. Decision to Disposition Date: Mar 21, 2018 Decision to Disposition Time: 11:08 Depart Departure Latest Vital Signs Vital Signs Date Time Temp Pulse Resp B/P (MAP) Pulse Ox O2 Delivery O2 Flow Rate FiO2 03/21/18 10:03 97.8 87 20 119/90 94 Room Air Impression: Primary Impression: Knee pain, right Condition: Improved Disposition: HOME OR SELF-CARE New Scripts Hydrocodone Bit/Acetaminophen (HYDROCODON-ACETAMINOPHEN 5-325) 1 Each Tablet 1 EACH PO Q4-6H PRN for PAIN, #12 TAB 0 Refills TAKE ONE TABLET BY MOUTH EVERY 4-6 HOURS NEEDED FOR PAIN Prov: LYN HOWARD MD 03/21/18 Patient Instructions: Crutch Instructions (ED), Knee Pain (ED) Problem Qualifiers Primary Impression: Knee pain, right Chronicity: acute Qualified Codes: M25.561 - Pain in right knee LYN HOWARD MD Mar 21, 2018 10:29
--- NOTE | 2018-03-21 11:00 | RADIOLOGY IMAGING REPORT ---
FACILITY: [facility] [place] PATIENT NAME: Tahir Menjivar : 1980 MR: [id number] V: [id number] EXAM DATE: ORDERING PHYSICIAN: LYN HOWARD TECHNOLOGIST: Location: [facility] Patient: Tahir Menjivar : 1980 Visit/Account:[id number] Date of Sevice: 03/21/2018 EXAMINATION: Right knee, 4 views 03/21/2018 10:29 AM HISTORY: Pain. Unable to straighten leg. COMPARISON: None FINDINGS: Visualized bony structures are intact and anatomically aligned without fracture or other a cute osseous abnormality evident. Probable small suprapatellar effusion is present. IMPRESSION: Probable small suprapatellar effusion. No acute bony finding. Report Dictated By: Alexei Carlos MD at 03/21/2018 10:54 AM Report E-Signed By: Alexei Carlos MD at 03/21/2018 10:56 AM WSN:[email or web address]
[2018-03-21] MEDS ORDERED: LOR5/325 PO (11:06)
[2018-03-21 11:13] VITALS: BP 126/88
== END 2018-03-21 11:24 | disposition home or self-care (01) ==
LOC: ER 10:12
DX: M25.561 Pain in right knee (principal)
CPT/HCPCS: 73564; 99283

== ENCOUNTER → 2018-03-25 | Outpatient (CLI) | payer OTHER | LOC: LAB 17:17 | PROVIDERS: ATTEND Internal Medicine Nephrology | DX: E13.9 Other specified diabetes mellitus without complications (principal); N18.3 Chronic kidney disease, stage 3 (moderate); E87.2 Acidosis; D89.9 Disorder involving the immune mechanism, unspecified; Z94.0 Kidney transplant status | CPT/HCPCS: 36415; 84550 ==

== ENCOUNTER → 2018-03-26 | Outpatient (CLI) | payer OTHER ==
--- NOTE | 2018-03-26 16:37 | RADIOLOGY IMAGING REPORT ---
FACILITY: [facility] [place] PATIENT NAME: Tahir Menjivar : 1980 MR: [id number] V: [id number] EXAM DATE: ORDERING PHYSICIAN: CELESTE ANN TECHNOLOGIST: Location: [facility] [place] Patient: Tahir Menjivar : 1980 Visit/Account:[id number] Date of Sevice: 03/26/2018 Right lower extremity venous Doppler duplex ultrasound scan. HISTORY: Right calf pain, previous history of DVT. COMPARISON: None. A color flow Doppler duplex ultrasound examination with spectral analysis was performed on the lower extremity. The common femoral vein, superficial femoral vein, and popliteal vein are normal. These ve ssels compress and augment normally. A few trifurcation veins are incompletely compressible in the u pper calf. The trifurcation is otherwise unremarkable. Portions of the deep veins of the calf are ob scured. No abnormal fluid collections. A venous reflux study was not performed at this time. Note that Doppler ultrasound is somewhat insensitive below the knee. IMPRESSION: Positive for a small deep vein thrombosis in the right calf, chronicity indeterminate. Otherwise negative. COMMENT: The patient has been told to contact his physician tomorrow morning for further instructions. Report Dictated By: Krystian Mendoza MD at 03/26/2018 4:29 PM Report E-Signed By: Krystian Mendoza MD at 03/26/2018 4:32 PM WSN:[email or web address]
== END ==
LOC: US 15:33
PROVIDERS: ATTEND Internal Medicine Nephrology
DX: I82.401 Acute embolism and thrombosis of unspecified deep veins of right lower extremity (principal)

== ENCOUNTER → 2018-04-20 | Outpatient (CLI) | payer OTHER ==
[2018-04-20 09:39] LABS: PLATELET COUNT, AUTOMATED 173 K/uL (150-450)
== END ==
LOC: LAB 09:07
PROVIDERS: ATTEND Internal Medicine Nephrology
DX: R80.1 Persistent proteinuria, unspecified (principal); Z94.0 Kidney transplant status; E87.2 Acidosis; M10.9 Gout, unspecified; D89.9 Disorder involving the immune mechanism, unspecified; E13.9 Other specified diabetes mellitus without complications
CPT/HCPCS: 36415; 80197; 82040; 82247; 82310; 82374; 82435; 82565; 82570; 82947; 83735; 84075; 84100; 84132; 84155; 84156; 84295; 84450; 84460; 84520; 84550; 85025; 87497

== ENCOUNTER → 2018-05-03 | Outpatient (CLI) | payer OTHER ==
[~2018-05-03] MED LIST changes: +APIX5TAB4 PO
== END ==
LOC: LAB 12:24
PROVIDERS: ATTEND Internal Medicine Nephrology
DX: E13.9 Other specified diabetes mellitus without complications (principal); D89.9 Disorder involving the immune mechanism, unspecified; M10.9 Gout, unspecified; E87.2 Acidosis; Z94.0 Kidney transplant status; R80.1 Persistent proteinuria, unspecified; N28.9 Disorder of kidney and ureter, unspecified; N18.4 Chronic kidney disease, stage 4 (severe)
CPT/HCPCS: 36415; 82040; 82247; 82310; 82374; 82435; 82565; 82570; 82947; 83036; 83970; 84075; 84132; 84155; 84156; 84295; 84450; 84460; 84520; 87497

== ENCOUNTER → 2018-05-03 | Outpatient (CLI) | payer OTHER | LOC: LAB 12:20 | PROVIDERS: ATTEND Internal Medicine Hematology | DX: I82.401 Acute embolism and thrombosis of unspecified deep veins of right lower extremity (principal) | CPT/HCPCS: 36415; 81240; 81241; 81291; 83090; 85302; 85303; 85305; 85306 ==

== ENCOUNTER 2018-05-23 13:58 | Outpatient (RCR) | payer OTHER ==
[2018-04-25 13:36] VITALS: BP 122/82
--- NOTE | 2018-04-26 19:57 | [facility] ONCOLOGY NOTE ---
EVENT DATE: April 25, 2018 REFERRING PHYSICIAN Kumar Hair MD REASON FOR CONSULTATION Evaluation and management of recurrent DVT of the lower extremity. HEMATOLOGY HISTORY Patient is a 37-year-old male who was diagnosed with DVT, left lower extremity, after renal transplant surgery. As per patient, he was treated with warfarin, was switched to Eliquis, and he maintained on Eliquis for one year. He completed his treatment in August 2017. 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 After that, he developed pain and swelling of the right lower extremity. Doppler ultrasound done on the March came back positive for a small DVT in the right calf. Patient was maintained after that on Eliquis, and he is currently on Eliquis 5 mg twice daily. As per patient, he has never been tested for thrombophilia workup before. PAST MEDICAL HISTORY Chronic kidney disease, status post renal transplant done in 2017. PAST SURGICAL HISTORY Renal transplant surgery in 2017. FAMILY HISTORY Negative for cancer, blood diseases, or blood clotting. SOCIAL HISTORY Patient is with two children. 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 He drinks wine occasionally, but denies any abuse of tobacco or illicit drugs. CURRENT MEDICATIONS 1. Hydrocodone/acetaminophen 5/325 p.r.n. for pain every four to six hours. 2. Protonix 40 mg as needed. 3. Calcium carbonate 500 mg tablet twice daily. 4. Magnesium 400 mg twice daily. 5. Prednisone 5 mg daily. 6. Mycophenolate sodium 720 mg twice daily. 7. Tacrolimus 2 mg twice daily. ALLERGIES LISINOPRIL which caused swelling of the face and tongue. REVIEW OF SYSTEMS CONSTITUTIONAL: No appetite or weight change. No fever, chills, or sweating. No recent infection. HEENT: Ears: No tinnitus or hearing problem. Nose: No nasal discharge or epistaxis. Throat: No sore throat or mouth ulcers. Eyes: No diplopia or visual changes. RESPIRATORY: No shortness of breath. No cough, expectoration, or hemoptysis. CARDIOVASCULAR: No chest pain, orthopnea, or paroxysmal nocturnal dyspnea (PND). No edema. No palpitations. GASTROINTESTINAL: No nausea or vomiting. No diarrhea or constipation. No change in bowel movements. No heartburn or swallowing difficulties. No abdominal pain. No jaundice. No hematemesis, melena, or rectal bleeding. GENITOURINARY: No hematuria or dysuria. MUSCULOSKELETAL: He has pain in the right leg which is getting much better after starting treatment with Eliquis. NEUROLOGICAL: No tingling or numbness in the hands or feet. He has occasional headache. No convulsions. HEMATOLOGIC/LYMPHATIC: He bruises easily, and he has some gum bleeding from the use of Eliquis. He is also weak, tired, and fatigued. No enlarged lymph nodes. SKIN: No skin rash or lumps. PSYCHIATRIC: No anxiety or depression. PHYSICAL EXAMINATION GENERAL: Looks stable. Well developed, well nourished, and in no acute distress. VITAL SIGNS: Blood pressure 122/82, pulse 93 per minute, respirations 16 per minute, temperature 97, pulse oximetry 96% on room air. HEENT: Head: Atraumatic. No sinus tenderness to palpation. Eyes: No icterus or conjunctivitis. Mouth and throat: No oral thrush or mucositis. NECK: Supple. No cervical or supraclavicular lymphadenopathy. LUNGS: Clear to auscultation and percussion bilaterally. HEART: Regular rate and rhythm. No gallops, murmurs, clicks, or rubs. ABDOMEN: Soft and lax. No tenderness. No hepatosplenomegaly. No masses. EXTREMITIES: No cyanosis, clubbing, or edema. LYMPHATICS: No peripheral lymphadenopathy. NEUROLOGICAL: Conscious, alert, and oriented times three. No focal motor or sensory deficits. PSYCHIATRIC: Mood and affect appear normal. SKIN: No skin rash, bruise, or purpuric eruption. ASSESSMENT Recurrent deep venous thrombosis of the lower extremity. He had his first episode in 2016 in the left lower extremity after renal transplant surgery, treated with Eliquis for nearly a year. He stopped the Eliquis in August 2017. He developed another blood clot in the right lower extremity in the right calf by Doppler ultrasound done on the March, but as per patient, he was sitting nearly for two days in the office working. He is currently on Eliquis 5 mg twice daily. I talked to the patient today that I am planning to do a thrombophilia workup to decide about the duration of the anticoagulation at this time. If the patient has an underlying thrombophilic disease, then he will be a candidate for life-long anticoagulation given that he has had two episodes of blood clotting. I am planning to check protein C and protein S activity and antigen level. I am planning also to check the prothrombin gene mutation and the factor V Leiden mutation. I am planning to also check for antiphospholipid antibody syndrome with anticardiolipin antibodies, beta-2 glycoprotein antibodies, lupus anticoagulant, and antiphospholipid antibody panel. I am planning also to check the methylenetetrahydrofolate reductase mutation and fasting homocysteine level. I will see the patient after the results of those tests to discuss about further evaluation and management. PLAN 1. Thrombophilia workup. 2. Patient to return in two weeks for further evaluation and management. 3. Patient to contact us for any new concerns or complaints. GUMARO
[2018-05-23 14:03] VITALS: BP 117/74
--- NOTE | 2018-05-23 22:04 | [facility] ONCOLOGY NOTE ---
EVENT DATE: May 23, 2018 DIAGNOSES Recurrent deep venous thrombosis of the lower extremity. CHIEF COMPLAINT Patient is here today for followup of his recurrent DVT of the lower extremity. HEMATOLOGY HISTORY Patient is a 37-year-old male who was diagnosed with DVT, left lower extremity, after renal transplant surgery. As per patient, he was treated with warfarin, was switched to Eliquis, and he maintained on Eliquis for one year. He completed his treatment in August 2017. 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 After that, he developed pain and swelling of the right lower extremity. Doppler ultrasound done on the March came back positive for a small DVT in the right calf. Patient was maintained after that on Eliquis, and he is currently on Eliquis 5 mg twice daily. As per patient, he has never been tested for thrombophilia workup before. 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 HISTORY OF PRESENT ILLNESS Patient is here today for followup of his recurrent DVT of the lower extremity and to discuss the result of the thrombophilia workup. He is doing fine currently. He has some bleeding gums sometimes and bruising from Eliquis, but other than that, he does not have any significant bleeding. PAST MEDICAL HISTORY Chronic kidney disease, status post renal transplant done in 2017. PAST SURGICAL HISTORY Renal transplant surgery in 2017. FAMILY HISTORY Negative for cancer, blood diseases, or blood clotting. SOCIAL HISTORY Patient is with two children. 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 He drinks wine occasionally, but denies any abuse of tobacco or illicit drugs. CURRENT MEDICATIONS 1. Hydrocodone/acetaminophen 5/325 p.r.n. for pain every four to six hours. 2. Protonix 40 mg as needed. 3. Calcium carbonate 500 mg tablet twice daily. 4. Magnesium 400 mg twice daily. 5. Prednisone 5 mg daily. 6. Mycophenolate sodium 720 mg twice daily. 7. Tacrolimus 2 mg twice daily. 8. Eliquis 5 mg twice daily. ALLERGIES LISINOPRIL which caused swelling of the face and tongue. REVIEW OF SYSTEMS CONSTITUTIONAL: No appetite or weight change. No fever, chills, or sweating. No recent infection. HEENT: Ears: No tinnitus or hearing problem. Nose: No nasal discharge or epistaxis. Throat: No sore throat or mouth ulcers. Eyes: No diplopia or visual changes. RESPIRATORY: No shortness of breath. No cough, expectoration, or hemoptysis. CARDIOVASCULAR: No chest pain, orthopnea, or paroxysmal nocturnal dyspnea (PND). No edema. No palpitations. GASTROINTESTINAL: No nausea or vomiting. No diarrhea or constipation. No change in bowel movements. No heartburn or swallowing difficulties. No abdominal pain. No jaundice. No hematemesis, melena, or rectal bleeding. GENITOURINARY: No hematuria or dysuria. MUSCULOSKELETAL: No pain in the muscles, joints, or bones. NEUROLOGICAL: No tingling or numbness in the hands or feet. No headaches or convulsions. HEMATOLOGIC/LYMPHATIC: He has occasional bleeding gums and bruising from the use of Eliquis. No weakness or fatigue. No enlarged lymph nodes. SKIN: No skin rash or lumps. PSYCHIATRIC: No anxiety or depression. PHYSICAL EXAMINATION GENERAL: Looks stable. Well developed, well nourished, and in no acute distress. VITAL SIGNS: Blood pressure 117/74, pulse 88 per minute, respirations 16 per minute, temperature 97.3, pulse ox 96% on room air. HEENT: Head: Atraumatic. No sinus tenderness to palpation. Eyes: No icterus or conjunctivitis. Mouth and Throat: No oral thrush or mucositis. NECK: Supple. No cervical or supraclavicular lymphadenopathy. LUNGS: Clear to auscultation and percussion bilaterally. HEART: Regular rate and rhythm. No gallops, murmurs, clicks, or rubs. ABDOMEN: Soft and lax. No tenderness. No hepatosplenomegaly. No masses. EXTREMITIES: No cyanosis, clubbing, or edema. LYMPHATICS: No peripheral lymphadenopathy. NEUROLOGICAL: Conscious, alert, and oriented times three. No focal motor or sensory deficits. PSYCHIATRIC: Mood and affect appear normal. SKIN: No skin rash, bruise, or purpuric eruption. 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 ASSESSMENT 1. Recurrent deep venous thrombosis of the lower extremity. He had his first episode in 2016 in the left lower extremity after renal transplant surgery, treated with Eliquis for nearly a year. He stopped the Eliquis in August 2017. He developed another blood clot in the right lower extremity in the right calf by Doppler ultrasound done on the March, but as per patient, he was sitting nearly for two days in the office working. He is maintained on Eliquis since then. He is taking 5 mg twice daily. His thrombophilia workup came back negative except for heterozygous state for methylenetetrahydrofolate reductase [id number] mutation and mildly elevated homocysteine at 11. I am planning to continue Eliquis for a total of one year, and I will bring him in 10 months from now prior to discontinuation of his Eliquis to discuss about continuing his blood thinner life-long or will stop after one year. 2. 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 I am planning to start folic acid 1 mg daily, and I will see the patient in 10 months from now with another fasting homocysteine. His B12 level was on the lower side of normal, and I am planning to get methylmalonic acid assay to see if he has biochemical deficiency of vitamin B12 or not. PLAN 1. Continue Eliquis 5 mg twice daily. 2. Patient to return in 10 months with fasting homocysteine level. 3. Check methylmalonic acid assay. 4. Folic acid 1 mg daily. 5. Patient to contact us for any new concerns or complaints. GUMARO
[2018-05-26] MEDS ORDERED: CYA1000 PO (15:45)
== END 2018-06-23 13:25 | disposition home or self-care (01) ==
LOC: ONC 13:58
PROVIDERS: ATTEND Internal Medicine Hematology
DX: I82.401 Acute embolism and thrombosis of unspecified deep veins of right lower extremity (principal); Z94.0 Kidney transplant status; Z79.01 Long term (current) use of anticoagulants
CPT/HCPCS: 99202; 99212

== ENCOUNTER → 2018-06-14 | Outpatient (CLI) | payer OTHER ==
[~2018-06-14] MED LIST changes: +CYA1000 PO
[2018-06-14 09:42] LABS: PLATELET COUNT, AUTOMATED 167 K/uL (150-450)
== END ==
LOC: LAB 09:02
PROVIDERS: ATTEND Internal Medicine Nephrology
DX: E13.9 Other specified diabetes mellitus without complications (principal); N18.9 Chronic kidney disease, unspecified; E87.2 Acidosis; Z94.0 Kidney transplant status; D89.9 Disorder involving the immune mechanism, unspecified
CPT/HCPCS: 36415; 80197; 82040; 82247; 82310; 82374; 82435; 82565; 82570; 82947; 84075; 84132; 84155; 84156; 84295; 84450; 84460; 84520; 85025

== ENCOUNTER → 2018-06-22 | Outpatient (CLI) | payer OTHER | LOC: LAB 18:10 | PROVIDERS: ATTEND Internal Medicine Nephrology | DX: Z13.9 Encounter for screening, unspecified (principal); N18.3 Chronic kidney disease, stage 3 (moderate); Z94.0 Kidney transplant status; E87.2 Acidosis; D89.9 Disorder involving the immune mechanism, unspecified; N25.81 Secondary hyperparathyroidism of renal origin; R80.1 Persistent proteinuria, unspecified; N28.9 Disorder of kidney and ureter, unspecified | CPT/HCPCS: 36415; 82040; 82247; 82310; 82374; 82435; 82565; 82947; 83036; 83970; 84075; 84132; 84155; 84295; 84450; 84460; 84520; 84550; 87799 ==

== ENCOUNTER → 2018-07-16 | Outpatient (CLI) | payer OTHER | LOC: LAB 11:25 | PROVIDERS: ATTEND Internal Medicine Nephrology | DX: N18.3 Chronic kidney disease, stage 3 (moderate) (principal); R80.1 Persistent proteinuria, unspecified; N28.9 Disorder of kidney and ureter, unspecified; N18.4 Chronic kidney disease, stage 4 (severe); Z94.0 Kidney transplant status | CPT/HCPCS: 36415; 87799 ==

== ENCOUNTER → 2018-08-06 | Outpatient (CLI) | payer OTHER ==
[2018-08-06 09:28] LABS: PLATELET COUNT, AUTOMATED 177 K/uL (150-450)
== END ==
LOC: LAB 09:01
PROVIDERS: ATTEND Internal Medicine Nephrology
DX: E13.9 Other specified diabetes mellitus without complications (principal); D89.9 Disorder involving the immune mechanism, unspecified; M10.9 Gout, unspecified; E78.2 Mixed hyperlipidemia; Z94.0 Kidney transplant status; R80.1 Persistent proteinuria, unspecified
CPT/HCPCS: 36415; 80197; 82040; 82247; 82310; 82374; 82435; 82565; 82570; 82947; 83735; 84075; 84132; 84155; 84156; 84295; 84450; 84460; 84520; 85025

== ENCOUNTER → 2018-08-19 | Outpatient (CLI) | payer OTHER ==
[2018-08-19 09:43] LABS: PLATELET COUNT, AUTOMATED 167 K/uL (150-450)
== END ==
LOC: LAB 08:54
PROVIDERS: ATTEND Nurse Practitioner Family
DX: Z94.0 Kidney transplant status (principal)
CPT/HCPCS: 36415; 80197; 81001; 82040; 82247; 82310; 82374; 82435; 82565; 82947; 83735; 84075; 84100; 84132; 84155; 84295; 84450; 84460; 84520; 85025

== ENCOUNTER → 2018-08-19 | Outpatient (CLI) | payer OTHER | LOC: LAB 09:00 | PROVIDERS: ATTEND Internal Medicine Nephrology | DX: E13.9 Other specified diabetes mellitus without complications (principal); D89.9 Disorder involving the immune mechanism, unspecified; M10.9 Gout, unspecified; E87.2 Acidosis; Z94.0 Kidney transplant status; R80.1 Persistent proteinuria, unspecified | CPT/HCPCS: 82570; 84156 ==

== ENCOUNTER → 2018-09-03 | Outpatient (CLI) | payer OTHER | LOC: LAB 17:14 | PROVIDERS: ATTEND Internal Medicine Nephrology | DX: R80.1 Persistent proteinuria, unspecified (principal); N28.9 Disorder of kidney and ureter, unspecified; N18.4 Chronic kidney disease, stage 4 (severe); Z94.0 Kidney transplant status | CPT/HCPCS: 36415; 87799 ==

== ENCOUNTER → 2018-09-24 | Outpatient (CLI) | payer OTHER | LOC: LAB 08:40 | PROVIDERS: ATTEND Internal Medicine Nephrology | DX: R80.1 Persistent proteinuria, unspecified (principal); Z94.0 Kidney transplant status; E87.2 Acidosis; M10.9 Gout, unspecified; D89.9 Disorder involving the immune mechanism, unspecified | CPT/HCPCS: 86644; 86645 ==

== ENCOUNTER → 2018-09-24 | Outpatient (CLI) | payer OTHER ==
[2018-09-24 08:54] LABS: PLATELET COUNT, AUTOMATED 179 K/uL (150-450)
== END ==
LOC: LAB 08:21
PROVIDERS: ATTEND Nurse Practitioner Family
DX: Z94.0 Kidney transplant status (principal)
CPT/HCPCS: 36415; 80197; 82040; 82247; 82310; 82374; 82435; 82565; 82947; 84075; 84132; 84155; 84295; 84450; 84460; 84520; 85025

== ENCOUNTER → 2018-10-05 | Outpatient (CLI) | payer OTHER | LOC: LAB 12:06 | PROVIDERS: ATTEND Internal Medicine Nephrology | DX: E13.9 Other specified diabetes mellitus without complications (principal); N18.3 Chronic kidney disease, stage 3 (moderate); Z94.0 Kidney transplant status; E87.2 Acidosis; D89.9 Disorder involving the immune mechanism, unspecified; R80.1 Persistent proteinuria, unspecified; M10.9 Gout, unspecified | CPT/HCPCS: 36415; 87497 ==

== ENCOUNTER → 2018-10-31 | Outpatient (CLI) | payer OTHER | LOC: LAB 08:42 | PROVIDERS: ATTEND Nurse Practitioner Family | DX: Z94.0 Kidney transplant status (principal) | CPT/HCPCS: 36415; 82040; 82247; 82310; 82374; 82435; 82565; 82947; 83735; 84075; 84100; 84132; 84155; 84295; 84450; 84460; 84520 ==

== ENCOUNTER → 2018-10-31 | Outpatient (CLI) | payer OTHER ==
[2018-10-31 09:04] LABS: PLATELET COUNT, AUTOMATED 169 K/uL (150-450)
== END ==
LOC: LAB 08:38
PROVIDERS: ATTEND Internal Medicine Nephrology
DX: R80.1 Persistent proteinuria, unspecified (principal); M10.9 Gout, unspecified; D89.9 Disorder involving the immune mechanism, unspecified; E13.9 Other specified diabetes mellitus without complications; N18.4 Chronic kidney disease, stage 4 (severe); N28.9 Disorder of kidney and ureter, unspecified; Z94.0 Kidney transplant status
CPT/HCPCS: 80197; 82570; 84156; 85025; 87799

== ENCOUNTER → 2018-12-01 | Outpatient (CLI) | payer OTHER ==
[~2018-12-01] MED LIST changes: +PROM473S4 PO
== END ==
LOC: LAB 10:30
PROVIDERS: ATTEND Emergency Medicine
DX: J02.9 Acute pharyngitis, unspecified (principal)
CPT/HCPCS: 87070

== ENCOUNTER → 2018-12-09 | Outpatient (CLI) | payer OTHER ==
[2018-12-09 09:06] LABS: PLATELET COUNT, AUTOMATED 193 K/uL (150-450)
== END ==
LOC: LAB 08:35
PROVIDERS: ATTEND Internal Medicine Nephrology
DX: R80.1 Persistent proteinuria, unspecified (principal); Z94.0 Kidney transplant status; M10.9 Gout, unspecified; D89.9 Disorder involving the immune mechanism, unspecified; E13.9 Other specified diabetes mellitus without complications
CPT/HCPCS: 36415; 80197; 82040; 82247; 82310; 82374; 82435; 82565; 82570; 82947; 84075; 84132; 84155; 84156; 84295; 84450; 84460; 84520; 85025

== ENCOUNTER → 2018-12-23 | Outpatient (CLI) | payer OTHER | LOC: LAB 08:34 | PROVIDERS: ATTEND Internal Medicine Nephrology | DX: D89.9 Disorder involving the immune mechanism, unspecified (principal); E87.2 Acidosis; B34.9 Viral infection, unspecified; Z94.0 Kidney transplant status; Z86.718 Personal history of other venous thrombosis and embolism | CPT/HCPCS: 36415; 80197; 82306; 87799 ==